=== PATIENT | male | born 1975 | race Caucasian/White ===

== ENCOUNTER 2022-06-23 14:15 | Emergency (ER) | payer MEDICAID ==
[~2022-06-23] VITALS: Ht 177.8 cm; Wt 73.5 kg
[2022-06-23 16:38] VITALS: BP 138/68
[2022-06-23] MEDS ORDERED: CYCLOBENZAPRINE 10 MG TABLET PO ONE (17:00)
[2022-06-23] MEDS ORDERED: KETOROLAC TROMETHAMINE INJ 60 MG/2 ML VIAL IM ONE (17:00)
[2022-06-23] MEDS ORDERED: KETOROLAC TROMETHAMINE INJ 30 MG/ML VIAL ONE (17:02)
[2022-06-23] MEDS ORDERED: CYCLOBENZAPRINE 10 MG TABLET ONE (17:03)
[2022-06-23] MEDS ORDERED: IBUP-1953 PO (18:47)
[2022-06-23] MEDS ORDERED: LIDO30AD10 TP (18:47)
[2022-06-23] MEDS ORDERED: CYCL5TAB PO (18:47)
--- NOTE | 2022-06-23 18:50 | NUR ---
Patient discharged to home in stable condition. Written and verbal after care instructions given. Patient verbalizes understanding of instruction.
== END 2022-06-23 18:50 | disposition home or self-care (01) ==
LOC: ER 14:30
DX: S13.4XXA Sprain of ligaments of cervical spine, initial encounter (principal); S09.90XA Unspecified injury of head, initial encounter; V89.2XXA Person injured in unspecified motor-vehicle accident, traffic, initial encounter; Y93.89 Activity, other specified; Y92.89 Other specified places as the place of occurrence of the external cause; Y99.8 Other external cause status
CPT/HCPCS: 99285; 70450; 96372; J1885